=== PATIENT | male | born 1980 | race Caucasian/White ===

== ENCOUNTER 2016-12-10 11:58 | Emergency (ER) | payer OTHER ==
[~2016-12-10] VITALS: Ht 175.3 cm; Wt 85.1 kg
[~2016-12-10 11:58] MED LIST: AMOXICILLIN500 MG PO; CLINDAMYCIN HC300 MG PO; NORCO 5/3251 TABLET PO; TORADOL10 MG PO; ULTRAM50 MG PO
[2016-12-10] MEDS ORDERED: KEFLEX500 MG PO (12:28)
[2016-12-10 12:42] VITALS: BP 119/82
== END 2016-12-10 12:47 | disposition home or self-care (01) ==
LOC: EME 11:58
DX: L03.012 Cellulitis of left finger (principal); F17.200 Nicotine dependence, unspecified, uncomplicated
CPT/HCPCS: 99281; 99283

== ENCOUNTER 2016-12-17 20:14 | Emergency (ER) | payer OTHER ==
[~2016-12-17] VITALS: Ht 175.3 cm; Wt 81.8 kg
[~2016-12-17 20:14] MED LIST changes: +KEFLEX500 MG PO
[2016-12-18] MEDS ORDERED: CIPRO500 MG PO (00:36)
[2016-12-18] MEDS ORDERED: BACTRIM,SEPT1 TABLET PO (00:36)
[2016-12-18] MEDS ORDERED: INDOCIN50 MG PO (00:37)
[2016-12-18] MEDS ORDERED: NORCO 7.5/321 TABLET PO (00:37)
[2016-12-18 00:54] VITALS: BP 138/95
[2016-12-19] MEDS ORDERED: BACTROBAN OINTM22 GM TP (20:45)
== END 2016-12-18 00:55 | disposition home or self-care (01) ==
LOC: EME 20:14
PROC: 0H9QXZZ Drainage of Finger Nail, External Approach (ICD-10-PCS; principal; 2016-12-17)
DX: L03.012 Cellulitis of left finger (principal); F17.200 Nicotine dependence, unspecified, uncomplicated
CPT/HCPCS: 87070; 87075; 87076; 87077; 87185; 87186; 87205; 99281; 99285; J1335; S0020

== ENCOUNTER 2016-12-19 19:58 | Emergency (ER) | payer OTHER ==
[~2016-12-19] VITALS: Ht 175.3 cm; Wt 83.5 kg
[~2016-12-19 19:58] MED LIST changes: +BACTRIM,SEPT1 TABLET PO; +CIPRO500 MG PO; +INDOCIN50 MG PO; +NORCO 7.5/321 TABLET PO
[2016-12-19 20:07] VITALS: BP 158/98
[2016-12-19] MEDS ORDERED: BACTROBAN OINTM22 GM TP (20:45)
== END 2016-12-19 21:11 | disposition home or self-care (01) ==
LOC: EME 19:58 → RME 19:58
DX: L03.012 Cellulitis of left finger (principal); S61.203D Unspecified open wound of left middle finger without damage to nail, subsequent encounter; X58.XXXD Exposure to other specified factors, subsequent encounter; F17.200 Nicotine dependence, unspecified, uncomplicated
CPT/HCPCS: 99281; 99284